=== PATIENT | female | born 1970 | race Caucasian/White ===

== ENCOUNTER 2020-06-15 20:58 | Outpatient (REF) | payer OTHER, SELFPAY ==
[2020-06-15 22:08] LABS: Abs Immature Grans 0.03 10^3/uL (0.0-0.06); Absolute Basophil Count 0.07 10^3/uL (0.0-0.2); Absolute Eosinophil Count 0.17 10^3/uL (0.0-0.7); Absolute Lymphocyte Count 2.31 10^3/uL (1.2-3.4); Absolute Monocyte Count 0.66 10^3/uL (0.1-0.8); Absolute Neutrophil Count 5.78 10^3/uL (1.2-6.7); Basophils % 0.8; Eosinophils % 1.9; HCT 33.4 % (36.0-46.0); Immature Grans % 0.3; Lymphocytes % 25.6; MCH 21.1 pg (27.0-33.0); MCHC 29.9 % (32.0-36.0); MCV 70.5 fL (80-95); MPV 9.8 fL (8.0-11.0); Monocytes % 7.3; Neutrophils % 64.1; Nucleated RBC 0 %; Platelet Count 379 10^3/uL (130-400); RBC 4.74 10^6/uL (3.93-5.22); RDW 16.5 % (11.7-14.6); RDW-SD 41.7 fL; WBC 9.02 10^3/uL (4.4-10.8)
[2020-06-15 22:26] LABS: BUN 12 mg/dL (7-18); CREATININE 0.7 mg/dL (0.55-1.02); Calcium 10.6 mg/dL (8.5-10.1); Chloride 104 mmol/L (98-107); Glucose 99 mg/dL (74-106); Potassium 4.1 mmol/L (3.5-5.1); Sodium 140 mmol/L (136-145); TSH (W/Ref FT4) 0.87 uIU/mL (0.36-3.74)
[2020-06-15 22:27] LABS: Anisocytosis 1+; Hypochromasia 2+; Microcytosis 2+
[2020-06-15 22:29] LABS: Poikilocytes 1+
[2020-06-17 11:06] LABS: Ferritin 5 ng/mL (8-252)
[2020-06-20 08:35] LABS: Transferrin 416 mg/dL (201-352)
== END 2020-06-15 20:59 | disposition home or self-care (01) ==
LOC: NCHCN 20:58
PROVIDERS: PCP Nurse Practitioner Community Health; Visit Provider Nurse Practitioner Community Health
DX: N93.9 Abnormal uterine and vaginal bleeding, unspecified (principal); N92.4 Excessive bleeding in the premenopausal period; Z83.49 Family history of other endocrine, nutritional and metabolic diseases
CPT/HCPCS: 80048; 82728; 84443; 84466; 85025

== ENCOUNTER 2020-08-01 10:19 | Outpatient (REF) | payer OTHER, SELFPAY ==
[2020-08-01 13:33] LABS: HCT 32.9 % (36.0-46.0); HGB 9.4 g/dL (11.2-15.7); MCH 20.5 pg (27.0-33.0); MCHC 28.6 % (32.0-36.0); MCV 71.7 fL (80-95); MPV 9.8 fL (8.0-11.0); Platelet Count 392 10^3/uL (130-400); RBC 4.59 10^6/uL (3.93-5.22); RDW 16.4 % (11.7-14.6); WBC 5.44 10^3/uL (4.4-10.8)
[2020-08-01 13:49] LABS: Ferritin 5 ng/mL (8-252)
== END 2020-08-01 10:20 | disposition home or self-care (01) ==
LOC: NCHCN 10:19
PROVIDERS: PCP Nurse Practitioner Community Health; Visit Provider Nurse Practitioner Community Health
DX: D50.9 Iron deficiency anemia, unspecified (principal)
CPT/HCPCS: 85027; 82728

== ENCOUNTER 2021-03-07 15:33 | Outpatient (REF) | payer OTHER, SELFPAY ==
[2021-03-07 21:29] LABS: Calculated LDL 180 mg/dL (<100); Cholesterol 259 mg/dL (<200); HDL Cholesterol 53 mg/dL (40-60); Hemoglobin A1C 5.7 % (<5.7); Triglyceride 131 mg/dL (<150)
== END 2021-03-07 15:34 | disposition home or self-care (01) ==
LOC: NCHCN 15:33
PROVIDERS: PCP Nurse Practitioner Community Health; Visit Provider Nurse Practitioner Family
DX: Z00.00 Encounter for general adult medical examination without abnormal findings (principal)
CPT/HCPCS: 80061; 83036

== ENCOUNTER 2021-08-03 23:13 | Outpatient (REF) | payer OTHER, SELFPAY ==
[2021-08-03 15:01] LABS: Hemoglobin A1C 5.7 % (<5.7)
== END 2021-08-03 23:14 | disposition home or self-care (01) ==
LOC: NCHCN 23:13
PROVIDERS: PCP Nurse Practitioner Community Health; Visit Provider Nurse Practitioner Family
DX: R73.09 Other abnormal glucose (principal)
CPT/HCPCS: 83036

== ENCOUNTER 2021-12-19 17:51 | Outpatient (REF) | payer OTHER, SELFPAY ==
[2021-12-19 14:54] LABS: ALT 19 U/L (14-59); AST 15 U/L (15-37); Alkaline Phosphatase 73 U/L (46-116); Anion Gap 6.6 mmol/L (3-11); BUN 14 mg/dL (7-18); Bilirubin, Total 0.4 mg/dL (0.2-1.0); CO2 28.4 mmol/L (21.0-32.0); CREATININE 0.9 mg/dL (0.55-1.02); Calcium 10.3 mg/dL (8.5-10.1); Calculated LDL 160 mg/dL (<100); Chloride 102 mmol/L (98-107); Cholesterol 238 mg/dL (<200); Estimated GFR 77.88 (mL/min/1.73m2); Glucose 102 mg/dL (74-106); HDL Cholesterol 59 mg/dL (40-60); Hemoglobin A1C 5.5 % (<5.7); Potassium 4.3 mmol/L (3.5-5.1); Sodium 137 mmol/L (136-145); Total Protein 7.6 g/dL (6.4-8.2); Triglyceride 98 mg/dL (<150)
== END 2021-12-19 17:52 | disposition home or self-care (01) ==
LOC: NCHCN 17:51
PROVIDERS: PCP Nurse Practitioner Community Health; Visit Provider Nurse Practitioner Family
DX: R73.09 Other abnormal glucose (principal); Z13.220 Encounter for screening for lipoid disorders; Z00.00 Encounter for general adult medical examination without abnormal findings
CPT/HCPCS: 80053; 80061; 83036

== ENCOUNTER 2021-12-21 16:51 | Outpatient (REF) | payer OTHER, SELFPAY ==
[2021-12-21 21:31] LABS: Abs Immature Grans 0.03 10^3/uL (0.0-0.06); Absolute Basophil Count 0.07 10^3/uL (0.0-0.2); Absolute Eosinophil Count 0.17 10^3/uL (0.0-0.7); Absolute Lymphocyte Count 2.24 10^3/uL (1.2-3.4); Absolute Monocyte Count 0.48 10^3/uL (0.1-0.8); Eosinophils % 2.4; HCT 41.7 % (36.0-46.0); HGB 14.3 g/dL (11.2-15.7); Immature Grans % 0.4; Lymphocytes % 31.2; MCH 30.2 pg (27.0-33.0); MCHC 34.3 % (32.0-36.0); MCV 88 fL (80-95); Monocytes % 6.7; Neutrophils % 58.3; Platelet Count 284 10^3/uL (130-400); RBC 4.74 10^6/uL (3.93-5.22); RDW 11.4 % (11.7-14.6); RDW-SD 36.9 fL; WBC 7.19 10^3/uL (4.4-10.8)
[2021-12-21 21:48] LABS: Iron 62 ug/dL (50-170); Total Iron Binding Capacity 306 ug/dL (250-450); Transferrin Sat 20 % (15-50)
[2021-12-21 21:58] LABS: Calcium 9.9 mg/dL (8.5-10.1); Ferritin 60 ng/mL (8-252)
[2021-12-25 10:22] LABS: Parathyroid Hormone,Intact 98 pg/mL (19-88)
[2021-12-25 10:51] LABS: Transferrin 258 mg/dL (201-352)
== END 2021-12-21 16:52 | disposition home or self-care (01) ==
LOC: NCHCN 16:51
PROVIDERS: PCP Nurse Practitioner Community Health; Visit Provider Nurse Practitioner Family
DX: D64.9 Anemia, unspecified (principal); E83.52 Hypercalcemia
CPT/HCPCS: 82310; 82728; 83540; 83550; 83970; 84466; 85025

== ENCOUNTER 2022-01-31 16:03 | Outpatient (REF) | payer OTHER, SELFPAY ==
[2022-01-31 16:27] LABS: Vitamin D 25 Total 29.3 ng/mL (30-100)
== END 2022-01-31 16:04 | disposition home or self-care (01) ==
LOC: NCHCN 16:03
PROVIDERS: PCP Nurse Practitioner Community Health; Visit Provider Nurse Practitioner Family
DX: E21.3 Hyperparathyroidism, unspecified (principal)
CPT/HCPCS: 82306

== ENCOUNTER 2022-03-09 15:02 | Outpatient (REF) | payer OTHER, SELFPAY ==
[2022-03-09 17:26] LABS: Vitamin D 25 Total 33.3 ng/mL (30-100)
== END 2022-03-09 15:03 | disposition home or self-care (01) ==
LOC: NCHCN 15:02
PROVIDERS: PCP Nurse Practitioner Community Health; Visit Provider Nurse Practitioner Family
DX: E55.9 Vitamin D deficiency, unspecified (principal)
CPT/HCPCS: 82306